=== PATIENT | male | born 1950 | race Caucasian/White ===

== ENCOUNTER 2016-06-18 09:24 | Day surgery (SDC) | payer MEDICARE ==
[2016-06-14 15:25] LABS: BASOPHILS 0.5 %; BASOPHILS ABSOLUTE 0.03 10/3/uL (0.0-0.16); EOSINOPHILS 3.9 %; EOSINOPHILS ABSOLUTE 0.25 10/3/uL (0.0-0.53); HEMATOCRIT 42.9 % (40.0-51.0); HEMOGLOBIN 15.2 g/dL (13.6-17.8); IMMATURE GRANULOCYTES 0.2 %; IMMATURE GRANULOCYTES ABSOLUTE 0.01 10/3/uL (0.0-0.11); LYMPHOCYTES 27.4 %; LYMPHOCYTES ABSOLUTE 1.77 10/3/uL (0.67-4.30); MEAN CORPUS HGB CONC 35.4 g/dL (32.0-36.0); MEAN CORPUSCULAR HEMOGLOB 31.8 pg (26.0-34.0); MEAN CORPUSCULAR VOLUME 89.7 fL (80-100); MEAN PLATELET VOLUME 11.4 fL (9.2-13.0); MONOCYTES 7.6 %; MONOCYTES ABSOLUTE 0.49 10/3/uL (0.21-1.20); NEUTROPHILS 60.4 %; NEUTROPHILS ABSOLUTE 3.92 10/3/uL (2.02-8.40); PLATELET COUNT 231 10/3/uL (150-400); RBC DISTRIBUTION WIDTH 12.1 % (12.0-16.0); RED CELL COUNT 4.78 10/6/uL (4.7-6.1); WHITE BLOOD CELLS 6.5 10/3/uL (4.5-10.5)
[2016-06-14 15:26] LABS: MANUAL DIFF NO %
[2016-06-14 16:09] LABS: A/G RATIO 1.4 (0.7-1.9); ALBUMIN 4.2 G/DL (3.5-5.0); ALKALINE PHOSPHATASE 74 U/L (45-117); CALCIUM, SERUM 9.7 MG/DL (8.5-10.4); CHLORIDE, SERUM 100 MMOL/L (96-112); CO2 (CARBON DIOXIDE) 26 MMOL/L (24-34); CREATININE 1.43 MG/DL (0.70-1.30); GFR AFRICAN AMERICAN 59 ML/MIN (>=60); GFR NON AFRICAN AMERICAN 51 ML/MIN (>=60); GLOBULIN 2.9 G/DL (2.5-4.1); POTASSIUM, SERUM 4.5 MMOL/L (3.5-5.3); SGOT(AST) 16 U/L (5-40); SGPT(ALT) 25 U/L (5-65); SODIUM, SERUM 137 MMOL/L (135-148); TOTAL BILIRUBIN 0.4 MG/DL (0-1.2); TOTAL PROTEIN 7.1 G/DL (6.0-8.5)
[2016-06-14 16:11] LABS: BUN (BLOOD UREA NITROGEN) 31 MG/DL (6-23); GLUCOSE, SERUM 331 MG/DL (60-99)
--- NOTE | ~2016-06-18 | OP ---
Record Of Operation [facility] [address] [place]. [address] NAME: JESSICA GALVEZ : 52 STATUS : [facility]#: [id number] AGE: 66 ADM/REG DATE : 06/18/16 MR#: [id number] REPORT SERV DATE: 06/21/16 DICTATED BY: EM BERNAL DATE: 06/21/16 REPORT STATUS : Draft TRANSCRIBED BY: MODL DATE: 06/21/16 DATE OF PROCEDURE: 06/18/2016 PREOPERATIVE DIAGNOSES: 1. Symptomatic cholelithiasis. 2. Biliary dyskinesia. POSTOPERATIVE DIAGNOSES: 1. Symptomatic cholelithiasis. 2. Biliary dyskinesia. PROCEDURE: Laparoscopic cholecystectomy. ATTENDING SURGEON: Em Bernal M.D. CHIEF RESIDENT SURGEON: Lesia Echeverria M.D. ANESTHESIA: General endotracheal anesthesia and local anesthesia. SPECIMEN: Gallbladder. BLOOD LOSS: 5 mL. COMPLICATIONS: None. INDICATION: Mr. Galvez is a 66-year-old gentleman who presented to Dr. Bernal's office complaining of right upper quadrant pain. On workup, he was found to have imaging as well as labs and physical exam consistent with symptomatic cholelithiasis and biliary dyskinesia. He was offered elective laparoscopic cholecystectomy. Risks and benefits were discussed with the patient as well as alternatives. Questions were sought and answered, and the patient wished to proceed. DESCRIPTION OF OPERATION: The patient was brought to the operating room, placed supine on the operating table. After satisfactory induction of general endotracheal anesthesia, the patient's abdomen was prepped and draped in usual sterile fashion. A time-out was performed with all operative staff present. Then, the patient received appropriate preoperative antibiotics. We began by making a longitudinal incision through the umbilicus and dissected down to the fascia using combination of blunt dissection and electrocautery. The fascia was elevated and divided in the midline, and first a surgeon digit and a Lynette were inserted into the abdominal cavity to ensure intraabdominal placement. We then inserted a 12 mm Origin trocar in the fashion of Neel. The intraabdominal balloon was then insufflated and then the abdomen was insufflated to a pressure of 15 mmHg with carbon dioxide gas. The laparoscope was inserted and intraabdominal contents were inspected for any injury during trocar placement and none were noted. We then placed three more trocars along the right subcostal margin. An 11 mm trocar in the subxiphoid position and a 5 mm trocar in the midclavicular line and one laterally. Prior to each trocar placement, an incision was made Record Of Operation [facility] [id number] [place]. [address] NAME: JESSICA GALVEZ : 52 STATUS : [facility] PAT#: [id number] AGE: 66 ADM/REG DATE : 06/18/16 MR#: [id number] REPORT SERV DATE: 06/21/16 DICTATED BY: EM BERNAL DATE: 06/21/16 REPORT STATUS : Draft TRANSCRIBED BY: SONNY DATE: 06/21/16 with a scalpel and then the trocars were placed under direct visualization with the laparoscope. The gallbladder was distended and was grasped at the dome and was retracted up and over the liver. We then also grasped the infundibulum and retracted down toward the anterior superior iliac spine from the attachments. Adhesions were taken down with blunt dissection, and then, we used a combination of blunt dissection as well as electrocautery to the hook to dissect out the cystic duct and the cystic artery. Once we had critical view of safety achieved, the cystic duct was clipped twice distally and once proximally and then divided with scissors and the cystic artery was clipped twice proximally and once distally, and divided with scissors. We then used hook electrocautery to dissect the gallbladder off the liver bed. Once this was accomplished, it was placed into a laparoscopic retrieval bag and the string was cut. The gallbladder fossa was inspected for hemostasis. Further hemostasis was achieved using hook electrocautery and then fibrillar was then placed within the gallbladder fossa for further hemostasis due to the patient was to be started back on his home dose of oral anticoagulants. The laparoscopic retrieval bag was then grasped via the umbilical port site using a fenestrated grasper and was then removed through the umbilical port site. We had to enlarge the umbilical port site to remove the gallbladder. Once this was removed, it was passed off the table as specimen. The abdomen was then allowed to desufflate entirely after removing the trocars under direct visualization with the laparoscope. We then reapproximated the fascia of the umbilical port site using 0 Vicryl on a UR6 in a running fashion. All port sites were irrigated with saline and then skin edges were reapproximated using 4-0 Monocryl suture in simple subcuticular fashion. The patient tolerated procedure well. Sterile dressings were placed after the injection of local anesthetic into all wounds, and the patient was able to be extubated in the operating room and transferred to PACU in stable condition. Dr. Em Bernal, the attending, was present and scrubbed for the entirety of the case. There were no obvious complications. DICTATED BY: Lesia Echeverria MD SE/SONNY Em Bernal M.D. / [id number] CC: Cierra Melo AMY
[~2016-06-18 09:24] MED LIST: ANADS PO; AUG500 PO; DOES NOT KNOW MEDS; ELIQUIS 5 MG TAB5 MG PO; GLUCOPHAGE1000 MG PO; GLUCPH PO; HCTZ25B PO; HYDROCHLOROT12.5 MG PO; HYDROCHLOROT25 MG PO; IBU600 PO; KRILLOIL PO; LEVOTHROID50 MCG PO; LIPITOR40 PO; LORTAB10 PO; NEUR400 PO; NO HOME MEDICATIONS; NORV5 PO; PERCOCET1 TA4 PO; PR12.5 PO; PRILO PO; PRIN20 PO; SENTAB PO; SYN88 PO; TRADJENTA5 MG PO; VITD PO; ZANTAC150 MG PO; ZOFRAN ODT4 MG PO
== END 2016-06-18 19:31 | disposition home or self-care (01) ==
LOC: SDC 09:24
PROVIDERS: Specialist
PROC: 0FT44ZZ Resection of Gallbladder, Percutaneous Endoscopic Approach (ICD-10-PCS; principal; 2016-06-18 10:45)
DX: K80.10 Calculus of gallbladder with chronic cholecystitis without obstruction (principal); K82.8 Other specified diseases of gallbladder; K21.9 Gastro-esophageal reflux disease without esophagitis; E11.9 Type 2 diabetes mellitus without complications; I10 Essential (primary) hypertension; M19.90 Unspecified osteoarthritis, unspecified site; Z79.899 Other long term (current) drug therapy; Z79.1 Long term (current) use of non-steroidal anti-inflammatories (NSAID); Z98.890 Other specified postprocedural states; Z90.89 Acquired absence of other organs; Z90.49 Acquired absence of other specified parts of digestive tract
CPT/HCPCS: 80053; 82962; 85025; 88304; 93005; A9270-GY; J0690; J2250; J2405; J2550; J2710; J3010; Q9967